=== PATIENT | male | born 1980 | race Caucasian/White ===

== ENCOUNTER 2017-07-22 14:11 | Emergency (ER) | payer MEDICAID ==
[~2017-07-22] VITALS: Wt 81.8 kg
[2017-07-22] MEDS ORDERED: morphine 4 MG/ML VIAL IV STA ×2 (15:19→19:02)
[2017-07-22] MEDS ORDERED: SOD CHLORIDE 0.9% 1,000 ML IV ONE (15:30)
[2017-07-22] MEDS ORDERED: CEFAZOLIN 1 GM/50 ML (PMX) 50 ML IVPB SCH (15:30)
--- NOTE | 2017-07-22 15:36 | RADRPT ---
PROCEDURE: XR Finger. CLINICAL INDICATION: Trauma. Left fifth finger pain. TECHNIQUE: Three views. Frontal, lateral, and oblique. COMPARISON: None available FINDINGS: There is no fracture or dislocation. There is soft tissue injury of the distal aspect of the left fifth finger with an overlying dressing . Articular surfaces are intact. There is no lytic or blastic lesion. There is no radiopaque foreign body.. IMPRESSION: 1. Soft tissue injury of the distal aspect of the left fifth finger with an overlying dressing. 2. Otherwise unremarkable images of the left fifth finger. RPTAT: QQ .Yves Heredia MD, MD Date Time Electronically viewed and signed by .Yves Heredia MD, MD on 07/22/2017 15:35 .R/
[2017-07-22] MEDS ORDERED: SULF1TAB31 PO (17:16)
[2017-07-22] MEDS ORDERED: CEPH-443 PO (17:16)
[2017-07-22] MEDS ORDERED: LIDOCAINE 1% (MDV) 20 ML INJ SC ONE (17:30)
[2017-07-22] MEDS ORDERED: HYDR-906 PO (19:03)
[2017-07-22] MEDS ORDERED: HYDR-905 PO (20:03)
--- NOTE | 2017-07-22 20:09 | ERD ---
ER Documentation Chief Complaint Chief Complaint left hand 5th digit laceration w/ knife while cutting an onion BIBA HPI 37-year-old male comes to the emergency room after he cut his left pinky finger with a knife while cutting onions. He said he has had significant bleeding from the tip of his finger and has pain at the site. Says that he cut the tip of the finger off. Is otherwise healthy. Brought in by ambulance the paramedics said there is still significant active bleeding at the place a dressing on. ROS All systems reviewed and are negative except as per history of present illness. Medications Home Meds Active Scripts Hydrocodone/Acetaminophen ([place] 7.5-325 Tablet) 1 Each Tablet, 1 EACH PO Q6, # 20 TAB Prov:SEBASTIÁN ZAMBRANO DO 07/22/17 Cephalexin* (Keflex*) 500 Mg Capsule, 500 MG PO TID for 5 Days, CAP Prov:SEBASTIÁN ZAMBRANO DO 07/22/17 Sulfamethoxazole/Trimethoprim* (Bactrim Ds* Tablet) 1 Each Tablet, 1 TAB PO BID , #10 TAB Prov:SEBASTIÁN ZAMBRANO DO 07/22/17 Discontinued Scripts Hydrocodone/Acetaminophen ([place] 5-325 Tablet) 1 Each Tablet, 1 EACH PO Q6, #24 TAB Prov:GREENSEBASTIÁN DO 07/22/17 Allergies Allergies: Coded Allergies: No Known Allergy (Unverified , 07/22/17) PMhx/Soc Medical and Surgical Hx: pt denies Medical Hx, pt denies Surgical Hx Hx Alcohol Use: No Hx Substance Use: No Hx Tobacco Use: No Smoking Status: Never smoker Physical Exam Vitals Vital Signs Date Time Temp Pulse Resp B/P Pulse Ox O2 Delivery O2 Flow Rate FiO2 07/22/17 15:20 98.5 70 13 131/85 99 Physical Exam Const: [] Mild distress Head: Atraumatic Eyes: Normal Conjunctiva ENT: Normal External Ears, Nose and Mouth. Skin: No petechiae or rashes Back: No midline or flank tenderness Ext: No cyanosis, or edema. Left pinky finger with distal avulsion of approximately 1 cm of the fingertip and a diagonal section which does not involve the nail. There is quick oozing of blood from the approximate 1 x 1 cm area of avulsed fingertip. Neur: Awake and alert Psych: Normal Mood and Affect Results 24 hrs Current Medications Medications (Trade) Dose Ordered Sig/Casi Route PRN Reason Start Time Stop Time Status Last Admin Dose Admin Cefazolin Sodium (Ancef 1 Gm/50 ml (Pmx)) 50 ml @ 100 mls/hr ONCE IVPB 07/22/17 15:30 07/22/17 15:59 DC 07/22/17 16:06 Morphine Sulfate 4 mg 4 mg ONCE STAT IV 07/22/17 15:19 07/22/17 15:21 DC 07/22/17 16:06 Sodium Chloride (NS) 1,000 ml @ 1,000 mls/hr Q1H ONCE IV 07/22/17 15:30 07/22/17 16:29 DC 07/22/17 16:06 Lidocaine (Xylocaine 1% (Mdv) 20 ml) 20 ml ONCE ONCE SC 07/22/17 17:30 07/22/17 17:31 DC Morphine Sulfate (morphine) 4 mg ONCE STAT IV 07/22/17 19:02 07/22/17 19:03 DC 07/22/17 19:13 Procedures/MDM Fingertip avulsion with significant active bleeding secondary to arterial laceration of terminal blood supply. Stasis was achieved after electrocautery and Surgicel dressing. Patient had sensation intact to finger. He had been given 4 mg of morphine twice for the pain. Also given a gram of Ancef. X-ray shows no bony involvement. Going to discharge with Bactrim and Keflex to prevent the pain as well as [place] as analgesic pain medicine. Strict return precautions to the ER for any continued bleeding otherwise primary care follow- up in 2-3 days. Procedure note, control of arterial bleed, left fifth digit tip: Initially the patient was placed in the tourniquet with a Surgicel dressing placed on the wound. Tourniquet was then removed and then the dressing was removed. The patient had soaked blood through the Surgicel and dressing. I performed a digital block. I then replaced tourniquet and cauterized the wound using silver nitrate. This slowed down the bleeding but it continued to bleed around through the cauterized tissue. I then tried electrocautery she had better success with patient still had some oozing of blood through. I then used a thick Surgicel folded pad and used tape to place a dressing on the tip of the finger. This did cause hemostasis with no tourniquet there was no further bleeding. Patient tolerated the procedure well with no complications Digital block note, left fifth digit: After cleaning with alcohol lidocaine 2 cc was injected on each side of the dorsal base of the finger using a 27-gauge needle. Then 2 minutes this provided complete anesthesia of the finger. Departure Diagnosis: Primary Impression: Avulsion of finger tip Additional Impression: Arterial hemorrhage Condition: Stable Patient Instructions: Skin Avulsion Referrals: [facility] YOU HAVE RECEIVED A MEDICAL SCREENING EXAM AND THE RESULTS INDICATE THAT YOU DO NOT HAVE A CONDITION THAT REQUIRES URGENT TREATMENT IN THE EMERGENCY DEPARTMENT. FURTHER EVALUATION AND TREATMENT OF YOUR CONDITION CAN WAIT UNTIL YOU ARE SEEN IN YOUR DOCTORS OFFICE WITHIN THE NEXT 1-2 DAYS. IT IS YOUR RESPONSIBILITY TO MAKE AN APPOINTMENT FOR FOLOW-UP CARE. IF YOU HAVE A PRIMARY DOCTOR --you should call your primary doctor and schedule an appointment IF YOU DO NOT HAVE A PRIMARY DOCTOR YOU CAN CALL OUR PHYSICIAN REFERRAL HOTLINE AT IF YOU CAN NOT AFFORD TO SEE A PHYSICIAN YOU CAN CHOSE FROM THE FOLLOWING [facility] CL[facility]ICS [facility] [address] [facility] [address] [facility] [facility] [address] [facility] [address] [facility] [address] [facility] [facility]. [address] Additional Instructions: Llame al doctor MAANA y catherine robert TOREY PARA DENTRO DE 2-3 MEEK. Dgale a la secretaria que nosotros le instruimos hacer esta torey.Avise o llame si german condicin se empeora antes de la torey. Regresa aqui si peor o no mejor. SEBASTIÁN ZAMBRANO DO Jul 22, 2017 20:09
[2017-07-22 20:37] VITALS: BP 122/65; PULSE 85; RESP 20; TEMP 98.6
== END 2017-07-22 20:41 | disposition home or self-care (01) ==
LOC: E/R 14:11
DX: S61.317A Laceration without foreign body of left little finger with damage to nail, initial encounter (principal); W26.0XXA Contact with knife, initial encounter; Y92.9 Unspecified place or not applicable
CPT/HCPCS: 12001; 73140; 96374; 96375; 96376; J0690; J2270; J7030; Z7502; Z7610

== ENCOUNTER 2019-02-22 15:49 | Emergency (ER) | payer MEDICAID ==
[~2019-02-22] VITALS: Ht 167.6 cm; Wt 91.0 kg
[~2019-02-22 15:49] MED LIST: CEPH-443 PO; HYDR-4012 PO; SULF1TAB31 PO
[2019-02-22 16:02] VITALS: BP 145/67; PULSE 98; RESP 18; Ht 167.6 cm; Wt 91.0 kg
[2019-02-22] MEDS ORDERED: MECL-77 PO (16:16)
[2019-02-22] MEDS ORDERED: METH750T93 PO (16:16)
[2019-02-22] MEDS ORDERED: ACET-141 PO (16:17)
--- NOTE | 2019-02-22 17:40 | ERD ---
ER Documentation Chief Complaint Chief Complaint C/O MID BACK PAIN FOR A WEEK; STEADY AMBULATION, NO DISTRESS HPI 38-year-old male no significant past medical history presents for mid back pain x1 week. States he has about 5 out of 10 pain. The pain is nonradiating. Described as a dull sensation. He denies any fevers. Denies any recent back procedures. No weight loss noted. He does do some heavy lifting at work. The pain is worse with movement. Denies chest pain or shortness of breath. Denies abdominal pain, nausea, vomiting. No other modifying factors noted, no treatments tried at home. ROS All systems reviewed and are negative except as per history of present illness. Medications Home Meds Active Scripts Acetaminophen* (Acetaminophen*) 500 MG Extra Strength Tablet, 500 MG PO Q4H PRN for PAIN AND OR ELEVATED TEMP, #30 TAB Prov:KEELEY CRAIG DO 02/22/19 Meclizine Hcl* (Meclizine Hcl*) 25 Mg Tablet, 25 MG PO Q8H PRN for DIZZINESS, #30 TAB Prov:KEELEY CRAIG DO 02/22/19 Methocarbamol* (Robaxin*) 750 Mg Tablet, 750 MG PO TID PRN for MUSCLE SPASMS, #30 TAB Prov:KEELEY CRAIG DO 02/22/19 Hydrocodone/Acetaminophen ([place] 7.5-325 Tablet) 1 Each Tablet, 1 EACH PO Q6, #20 TAB Prov:SEBASTIÁN ZAMBRANO DO 07/22/17 Cephalexin* (Keflex*) 500 Mg Capsule, 500 MG PO TID for 5 Days, CAP Prov:SEBASTIÁN ZAMBRANO DO 07/22/17 Sulfamethoxazole/Trimethoprim* (Bactrim Ds* Tablet) 1 Each Tablet, 1 TAB PO BID, #10 TAB Prov:SEBASTIÁN ZAMBRANO DO 07/22/17 Allergies Allergies: Coded Allergies: No Known Allergy (Unverified , 07/22/17) PMhx/Soc Medical and Surgical Hx: pt denies Medical Hx, pt denies Surgical Hx Hx Alcohol Use: Yes (Occasional) Hx Substance Use: No Hx Tobacco Use: No Smoking Status: Current some day smoker FmHx Family History: No coronary disease Physical Exam Vitals Vital Signs Date Temp Pulse Resp B/P (MAP) Pulse Ox O2 O2 Flow FiO2 Time Delivery Rate 02/22/19 98.6 98 18 145/67 99 16:02 (93) Physical Exam Const: No acute distress Neck: Full range of motion. No meningismus. no midline tenderness Resp: Clear to auscultation bilaterally Cardio: Regular rate and rhythm, no murmurs, bilateral radial and dorsalis pedis pulses intact and equal Abd: Soft, non tender, non distended. Normal bowel sounds, no abdominal bruit noted Skin: No petechiae or rashes Back: Midthoracic paravertebral muscle tenderness palpation with some spasm noted, there is no midline tenderness, no step-off noted Ext: No cyanosis, or edema, 5/5 muscle strength bilateral upper and lower extremities Neur: Awake and alert, bilateral upper and lower extremity sensation intact Psych: Normal Mood and Affect Procedures/MDM Medical Decision Making: Differential diagnosis includes but not limited to muscle strain, ligamentous sprain, epidural abscess, osteomyelitis, osteoarthritis, herniated disc, compression fracture, aortic aneurysm, kidney stone, pyelonephritis, pancreatitis. Patient appeared well on physical examination. Nontoxic appearing. Patient appeared well on physical examination. Nontoxic appearing. No recent back procedure, therefore low suspicion for epidural abscess No recent infection, therefore low suspicion for osteomyelitis No trauma, therefore low suspicion for fracture No chest pain, abdominal pain and no pulse deficits noted, therefore low suspicion for aortic dissection or pancreatitis No flank pain or fever to suggest pyelonephritis or kidney stone Physical examination insistent with muscle strain. Prescription(s): Patient given prescription for supportive medication(s). Patient advised to follow up with PCP in 1-2 days. Patient advised to return to ED for new or worsening symptoms. Patient stable on discharge from the ED. Disclaimer: Inadvertent spelling and grammatical errors are likely due to EHR/dictation software use and do not reflect on the overall quality of patient care. Also, please note that the electronic time recorded on this note does not necessarily reflect the actual time of the patient encounter. Departure Diagnosis: Primary Impression: Back pain Back pain location: thoracic back pain Chronicity: unspecified Back pain laterality: bilateral Qualified Codes: M54.6 - Pain in thoracic spine Condition: Fair Patient Instructions: Back Pain (Acute Or Chronic) Referrals: [facility] YOU HAVE RECEIVED A MEDICAL SCREENING EXAM AND THE RESULTS INDICATE THAT YOU DO NOT HAVE A CONDITION THAT REQUIRES URGENT TREATMENT IN THE EMERGENCY DEPARTMENT. FURTHER EVALUATION AND TREATMENT OF YOUR CONDITION CAN WAIT UNTIL YOU ARE SEEN IN YOUR DOCTORS OFFICE WITHIN THE NEXT 1-2 DAYS. IT IS YOUR RESPONSIBILITY TO MAKE AN APPOINTMENT FOR FOLOW-UP CARE. IF YOU HAVE A PRIMARY DOCTOR --you should call your primary doctor and schedule an appointment IF YOU DO NOT HAVE A PRIMARY DOCTOR YOU CAN CALL OUR PHYSICIAN REFERRAL HOTLINE AT IF YOU CAN NOT AFFORD TO SEE A PHYSICIAN YOU CAN CHOSE FROM THE FOLLOWING [facility] [address] [facility] [address] [facility] [facility] [address] [facility] [address] [facility] [address] [facility] [facility]. [address] Additional Instructions: Call your primary care doctor TOMORROW for an appointment during the next 1-2 days.See the doctor sooner or return here if your condition worsens before your appointment time. KEELEY CRAIG DO Feb 22, 2019 17:40
== END 2019-02-22 16:21 | disposition home or self-care (01) ==
LOC: E/R 15:49
DX: M54.6 Pain in thoracic spine (principal); F17.210 Nicotine dependence, cigarettes, uncomplicated
CPT/HCPCS: 99283